=== PATIENT | male | born 1980 | race Two or more races ===

== ENCOUNTER 2023-05-29 18:20 | Emergency (ER) | payer MEDICAID ==
[~2023-05-29] VITALS: Ht 185.4 cm; Wt 97.4 kg
[~2023-05-29 18:20] MED LIST: PENI500T2 PO
[2023-05-29 18:26] VITALS: TEMP 98
[2023-05-30 01:26] VITALS: BP 144/93; PULSE 76; O2SAT 100
[2023-05-30] MEDS ORDERED: bacitracin 15gm ointment TP ONE (04:15)
[2023-05-30] MEDS ORDERED: TETanus/Pertussis (Acell)/Diphther VAC/PF (Tdap-Adult) 0.5ml syringe IMVAC ONE (04:15)
[2023-05-30] MEDS ORDERED: ibuprofen tablet 400 MG TABLET PO ONE (04:20)
[2023-05-30] MEDS ORDERED: HYDROcodone/acetaminophen 10/325mg tab PO ONE (04:20)
[2023-05-30] MEDS ORDERED: LIDOCAINE 1%/EPI 1:100,000 inj. 10 ML multi-dose vial IJ ONE (04:20)
[2023-05-30 04:31] VITALS: RESP 16
== END 2023-05-30 05:22 | disposition home or self-care (01) ==
LOC: ER 18:20
DX: S61.215A Laceration without foreign body of left ring finger without damage to nail, initial encounter (principal); Z79.2 Long term (current) use of antibiotics; W45.8XXA Other foreign body or object entering through skin, initial encounter; Y93.89 Activity, other specified; Y92.89 Other specified places as the place of occurrence of the external cause; Y99.8 Other external cause status
CPT/HCPCS: 12001; 90471; 90715; 99284